=== PATIENT | female | born 1985 | race Caucasian/White ===

== ENCOUNTER 2019-01-01 14:44 | Emergency (ER) | payer OTHER ==
[2019-01-01 14:57] VITALS: BP 150/84
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
== END 2019-01-01 16:00 | disposition home or self-care (01) ==
LOC: UCEAST 14:44
DX: R07.89 Other chest pain (principal)
CPT/HCPCS: 71120; 99211; G0463